=== PATIENT | female | born 1935 | race Native Hawaiian/Other Pacific Islander ===

== ENCOUNTER 2016-09-24 14:40 | Outpatient (CLI) | payer MEDICARE, OTHER | END 2016-09-24 14:41 | disposition home or self-care (01) | DX: I10 Essential (primary) hypertension (principal); D64.9 Anemia, unspecified; E11.9 Type 2 diabetes mellitus without complications; D50.9 Iron deficiency anemia, unspecified ==

== ENCOUNTER 2016-12-15 19:00 | Outpatient (CLI) | payer MEDICARE, OTHER ==
[2016-12-15 20:15] LABS: BASOPHILS # (AUTO) 0.1 10^3/uL (0.0-0.1); EOSINOPHILS # (AUTO) 0.5 10^3/uL (0.0-0.7); EOSINOPHILS % (AUTO) 5.9 %; HCT - HEMATOCRIT 31.5 % (37.0-47.0); HGB - HEMOGLOBIN 9.7 g/dL (12.0-16.0); LYMPHOCYTES # (AUTO) 1.6 10^3/uL (1.5-3.5); LYMPHOCYTES % (AUTO) 18.1 %; MEAN CORPUSCULAR HGB CONC 30.8 g/dL (32.0-36.0); MEAN CORPUSCULAR VOLUME 71.5 fL (81.0-99.0); MEAN PLATELET VOLUME 8.6 fL (7.9-10.8); MONOCYTES # (AUTO) 0.8 10^3/uL (0.0-1.0); MONOCYTES % (AUTO) 8.8 %; NEUTROPHILS # (AUTO) 5.9 10^3/uL (1.5-6.6); NEUTROPHILS % (AUTO) 66.2 %; RED BLOOD COUNT 4.41 10^6/uL (4.20-5.40); RED CELL DISTRIBUTION WIDTH 14.4 % (12.0-15.0); UNCORRECTED WHITE BLOOD COUNT 8.9 x10^3/uL; WHITE BLOOD COUNT 8.9 x10^3/uL (4.8-10.8)
[2016-12-15 20:44] LABS: ALBUMIN/GLOBULIN RATIO 0.7 (1.0-2.2); BILIRUBIN,TOTAL 0.2 mg/dL (0.2-1.0); CALCIUM 9.2 mg/dL (8.5-10.3); CREATININE 0.7 mg/dL (0.4-1.0); POTASSIUM 4.2 mmol/L (3.5-5.0); TOTAL PROTEIN 7.7 g/dL (6.7-8.2)
== END 2016-12-15 19:01 | disposition home or self-care (01) ==
LOC: LAB.R 19:00
DX: I10 Essential (primary) hypertension (principal)
CPT/HCPCS: 80053; 84443; 85025

== ENCOUNTER 2017-01-03 15:15 | Outpatient (CLI) | payer MEDICARE, OTHER ==
[2017-01-03 21:24] LABS: CALCIUM 9.3 mg/dL (8.5-10.3); CREATININE 0.7 mg/dL (0.4-1.0); POTASSIUM 4.3 mmol/L (3.5-5.0)
[2017-01-03 21:34] LABS: HEMOGLOBIN A1C 0.56 g/dL
== END 2017-01-03 15:16 | disposition home or self-care (01) ==
LOC: LAB.R 15:15
PROVIDERS: ATTEND Family Medicine
DX: I10 Essential (primary) hypertension (principal)
CPT/HCPCS: 80048; 83036

== ENCOUNTER 2017-04-28 08:00 | Outpatient (CLI) | payer MEDICARE, OTHER ==
[2017-04-28 19:25] LABS: HEMOGLOBIN A1C 1.22 g/dL
== END 2017-04-28 08:01 | disposition home or self-care (01) ==
LOC: LAB.R 08:00
DX: E11.9 Type 2 diabetes mellitus without complications (principal)
CPT/HCPCS: 83036

== ENCOUNTER 2017-07-14 08:00 | Outpatient (CLI) | payer MEDICARE, OTHER ==
[2017-07-14 23:06] LABS: BASOPHILS % (AUTO) 0.7 %; EOSINOPHILS # (AUTO) 0.6 10^3/uL (0.0-0.7); EOSINOPHILS % (AUTO) 7.7 %; HGB - HEMOGLOBIN 8.7 g/dL (12.0-16.0); LYMPHOCYTES # (AUTO) 1.9 10^3/uL (1.5-3.5); LYMPHOCYTES % (AUTO) 25.3 %; MEAN CORPUSCULAR HGB CONC 30.1 g/dL (32.0-36.0); MEAN CORPUSCULAR VOLUME 69.9 fL (81.0-99.0); MEAN PLATELET VOLUME 8.5 fL (7.9-10.8); MONOCYTES # (AUTO) 0.7 10^3/uL (0.0-1.0); MONOCYTES % (AUTO) 8.7 %; NEUTROPHILS # (AUTO) 4.3 10^3/uL (1.5-6.6); NEUTROPHILS % (AUTO) 57.6 %; PLT - PLATELET COUNT 200 10^3/uL (130-450); RED BLOOD COUNT 4.13 10^6/uL (4.20-5.40); RED CELL DISTRIBUTION WIDTH 14.7 % (12.0-15.0); WHITE BLOOD COUNT 7.5 x10^3/uL (4.8-10.8)
[2017-07-14 23:15] LABS: ALBUMIN 2.9 g/dL (3.2-5.5); ALBUMIN/GLOBULIN RATIO 0.8 (1.0-2.2); BILIRUBIN,TOTAL 0.2 mg/dL (0.2-1.0); CALCIUM 8.3 mg/dL (8.5-10.3); CREATININE 0.9 mg/dL (0.4-1.0); TOTAL PROTEIN 6.7 g/dL (6.7-8.2)
[2017-07-14 23:46] LABS: PLATELET ESTIMATE, MANUAL NORMAL (130-450,000) (NORMAL)
[2017-07-15 01:17] LABS: HB2 TOTAL 9.2 g/dL; HEMOGLOBIN A1C 0.85 g/dL; HEMOGLOBIN A1C % 10.6 % (4.6-6.2)
== END 2017-07-14 08:01 ==
LOC: LAB.R 08:00
DX: E11.9 Type 2 diabetes mellitus without complications (principal); D50.9 Iron deficiency anemia, unspecified
CPT/HCPCS: 80053; 82728; 83036; 85025

== ENCOUNTER 2017-08-12 08:00 | Outpatient (CLI) | payer MEDICARE, OTHER ==
[2017-08-12 16:20] LABS: BASOPHILS # (AUTO) 0.1 10^3/uL (0.0-0.1); BASOPHILS % (AUTO) 0.8 %; EOSINOPHILS # (AUTO) 0.4 10^3/uL (0.0-0.7); EOSINOPHILS % (AUTO) 4.2 %; HGB - HEMOGLOBIN 9.5 g/dL (12.0-16.0); LYMPHOCYTES # (AUTO) 2.5 10^3/uL (1.5-3.5); MEAN CORPUSCULAR HEMOGLOBIN 20.8 pg (27.0-31.0); MEAN CORPUSCULAR HGB CONC 30.4 g/dL (32.0-36.0); MEAN CORPUSCULAR VOLUME 68.5 fL (81.0-99.0); MEAN PLATELET VOLUME 8.7 fL (7.9-10.8); MONOCYTES # (AUTO) 0.7 10^3/uL (0.0-1.0); MONOCYTES % (AUTO) 7.6 %; NEUTROPHILS # (AUTO) 5.3 10^3/uL (1.5-6.6); NEUTROPHILS % (AUTO) 59.4 %; PLT - PLATELET COUNT 202 10^3/uL (130-450); RED BLOOD COUNT 4.58 10^6/uL (4.20-5.40); RED CELL DISTRIBUTION WIDTH 14.8 % (12.0-15.0); WHITE BLOOD COUNT 8.9 x10^3/uL (4.8-10.8)
[2017-08-12 16:38] LABS: PLATELET ESTIMATE, MANUAL NORMAL (130-450,000) (NORMAL); PLATELET MORPHOLOGY NORMAL APPEARANCE (NORMAL)
== END 2017-08-12 08:01 | disposition home or self-care (01) ==
LOC: LAB.R 08:00
DX: R79.89 Other specified abnormal findings of blood chemistry (principal); R68.89 Other general symptoms and signs
CPT/HCPCS: 82728; 85025

== ENCOUNTER 2017-10-29 08:00 | Outpatient (CLI) | payer MEDICARE, OTHER ==
[2017-10-29 17:51] LABS: CALCIUM 8.9 mg/dL (8.5-10.3)
[2017-10-29 18:03] LABS: BASOPHILS # (AUTO) 0.1 10^3/uL (0.0-0.1); BASOPHILS % (AUTO) 0.8 %; EOSINOPHILS # (AUTO) 0.4 10^3/uL (0.0-0.7); EOSINOPHILS % (AUTO) 5.1 %; HGB - HEMOGLOBIN 8.8 g/dL (12.0-16.0); LYMPHOCYTES % (AUTO) 28.6 %; MEAN CORPUSCULAR HEMOGLOBIN 21.5 pg (27.0-31.0); MEAN CORPUSCULAR HGB CONC 30.6 g/dL (32.0-36.0); MEAN CORPUSCULAR VOLUME 70.2 fL (81.0-99.0); MEAN PLATELET VOLUME 8.6 fL (7.9-10.8); MONOCYTES # (AUTO) 0.5 10^3/uL (0.0-1.0); MONOCYTES % (AUTO) 6.8 %; NEUTROPHILS # (AUTO) 4.2 10^3/uL (1.5-6.6); NEUTROPHILS % (AUTO) 58.7 %; PLT - PLATELET COUNT 303 10^3/uL (130-450); WHITE BLOOD COUNT 7.1 x10^3/uL (4.8-10.8)
== END 2017-10-29 08:01 ==
LOC: LAB.R 08:00
DX: E11.65 Type 2 diabetes mellitus with hyperglycemia (principal); D64.9 Anemia, unspecified
CPT/HCPCS: 80048; 82728; 85025

== ENCOUNTER 2017-10-31 08:00 | Outpatient (CLI) | payer MEDICARE, OTHER | END 2017-10-31 08:01 | disposition home or self-care (01) | LOC: LAB.R 08:00 | PROVIDERS: ATTEND Family Medicine | DX: D64.9 Anemia, unspecified (principal); D50.9 Iron deficiency anemia, unspecified | CPT/HCPCS: 82728 ==

== ENCOUNTER 2017-11-08 15:15 | Outpatient (CLI) | payer MEDICARE, OTHER ==
[2017-11-08 17:42] LABS: BASOPHILS # (AUTO) 0.1 10^3/uL (0.0-0.1); BASOPHILS % (AUTO) 0.6 %; EOSINOPHILS # (AUTO) 0.4 10^3/uL (0.0-0.7); EOSINOPHILS % (AUTO) 4.3 %; HGB - HEMOGLOBIN 9.1 g/dL (12.0-16.0); LYMPHOCYTES # (AUTO) 1.9 10^3/uL (1.5-3.5); LYMPHOCYTES % (AUTO) 20.6 %; MEAN CORPUSCULAR HEMOGLOBIN 22.5 pg (27.0-31.0); MEAN CORPUSCULAR HGB CONC 31.6 g/dL (32.0-36.0); MEAN PLATELET VOLUME 8.8 fL (7.9-10.8); MONOCYTES # (AUTO) 0.5 10^3/uL (0.0-1.0); MONOCYTES % (AUTO) 5.8 %; NEUTROPHILS # (AUTO) 6.3 10^3/uL (1.5-6.6); NEUTROPHILS % (AUTO) 68.7 %; PLT - PLATELET COUNT 224 10^3/uL (130-450); RED BLOOD COUNT 4.06 10^6/uL (4.20-5.40); RED CELL DISTRIBUTION WIDTH 15.6 % (12.0-15.0); WHITE BLOOD COUNT 9.2 x10^3/uL (4.8-10.8)
[2017-11-08 17:46] LABS: CREATININE 0.9 mg/dL (0.4-1.0)
== END 2017-11-08 15:16 ==
LOC: LAB.R 15:15
DX: E11.9 Type 2 diabetes mellitus without complications (principal)
CPT/HCPCS: 80048; 85025

== ENCOUNTER 2018-01-09 01:33 | Outpatient (CLI) | payer MEDICARE, OTHER | END 2018-01-09 01:34 | disposition critical access hospital (66) | LOC: EMS 01:33 | PROVIDERS: ATTEND Surgery | DX: K92.0 Hematemesis (principal) ==

== ENCOUNTER 2018-01-09 01:39 | Emergency (ER) | payer MEDICARE, OTHER ==
[2018-01-09] MEDS ORDERED: ONDANSETRON 4 MG/2 ML VIAL IVP STA (01:46)
[2018-01-09] MEDS ORDERED: PANTOPRAZOLE 40 MG VIAL IVP STA (01:46)
[2018-01-09] MEDS ORDERED: SODIUM CHLORIDE 0.9% 1,000 ML IV ONE (01:46)
[2018-01-09 02:08] LABS: BASOPHILS # (AUTO) 0.1 10^3/uL (0.0-0.1); EOSINOPHILS # (AUTO) 0.3 10^3/uL (0.0-0.7); EOSINOPHILS % (AUTO) 4.1 %; HGB - HEMOGLOBIN 9.2 g/dL (12.0-16.0); LYMPHOCYTES # (AUTO) 1.6 10^3/uL (1.5-3.5); LYMPHOCYTES % (AUTO) 20.4 %; MEAN CORPUSCULAR HEMOGLOBIN 23.7 pg (27.0-31.0); MEAN CORPUSCULAR HGB CONC 32.1 g/dL (32.0-36.0); MEAN CORPUSCULAR VOLUME 73.7 fL (81.0-99.0); MEAN PLATELET VOLUME 8.3 fL (7.9-10.8); MONOCYTES # (AUTO) 0.6 10^3/uL (0.0-1.0); MONOCYTES % (AUTO) 7.5 %; NEUTROPHILS # (AUTO) 5.2 10^3/uL (1.5-6.6); PLT - PLATELET COUNT 210 10^3/uL (130-450); RED BLOOD COUNT 3.88 10^6/uL (4.20-5.40); RED CELL DISTRIBUTION WIDTH 15.7 % (12.0-15.0); WHITE BLOOD COUNT 7.7 x10^3/uL (4.8-10.8)
[2018-01-09 02:12] LABS: PT - PROTHROMBIN TIME 11.2 secs (9.9-12.6)
[2018-01-09 02:19] LABS: ALBUMIN 3.1 g/dL (3.2-5.5); ALBUMIN/GLOBULIN RATIO 0.8 (1.0-2.2); BILIRUBIN,TOTAL 0.4 mg/dL (0.2-1.0); CALCIUM 9.1 mg/dL (8.5-10.3); CREATININE 0.9 mg/dL (0.4-1.0); TOTAL PROTEIN 7.2 g/dL (6.7-8.2)
--- NOTE | 2018-01-09 03:46 | ED Physician Documentation ---
PD HPI GI BLEED - Stated complaint Stated Complaint: VOMITED BLOOD - Chief complaint Chief Complaint: Abd Pain - History obtained from History obtained from: Patient, Family, EMS - History of Present Illness Timing - onset: Today Timing - details: Abrupt onset, Now resolved Associated symptoms: Vomiting, Hematemesis Similar symptoms before: No diagnosis Recently seen: Not recently seen - Additional information Additional information: Patient is an 82 year old female with a history of dementia and diabetes who was [facility] by the [facility] for and episode of hematemesis. According to ems patient vomited one time today. it looked dark so the staff used a stool guaic test and it was positive so they sent the patient in for evaluation. Patient has severe dementia and is a poor historian. Review of Systems Unable to obtain: Dementia PD PAST MEDICAL HISTORY - Past Medical History Past Medical History: Yes Cardiovascular: Hypertension Endocrine/Autoimmune: Type 2 diabetes GI: GERD Psych: Anxiety Musculoskeletal: Osteoarthritis, Osteoporosis, Osteopenia, Fatigue, Scoliosis, Chronic back pain - Past Surgical History Past Surgical History: No - Present Medications Home Medications: Ambulatory Orders Medication Instructions Recorded Confirmed Aspirin [Adult Low Dose Aspirin EC] 81 mg PO DAILY 11/24/15 Losartan [Cozaar] 50 mg PO DAILY 11/24/15 01/09/18 Metformin HCl 1,000 mg PO BID 11/24/15 01/09/18 Simvastatin 10 mg PO QPM 11/24/15 01/09/18 Cyanocobalamin (Vitamin B-12) 1 tab PO DAILY 01/09/18 01/09/18 [Vitamin B-12] Folic Acid 1 tab PO DAILY 01/09/18 01/09/18 Gabapentin 1 cap PO QPM 01/09/18 01/09/18 Insulin Aspart [NovoLOG] SQ QID 01/09/18 Multivitamin [Multivitamins] 1 each PO DAILY 01/09/18 01/09/18 Ondansetron Odt [Zofran] 4 mg TL Q6H PRN #10 tablet 01/09/18 - Allergies Allergies/Adverse Reactions: Allergies Allergy/AdvReac Type Severity Reaction Status Date / Time lisinopril Allergy Unknown Verified 01/09/18 01:48 Penicillins Allergy Unknown Verified 01/09/18 01:48 - Social History Does the pt smoke?: No Smoking Status: Never smoker Does the pt drink ETOH?: No Does the pt have substance abuse?: No - Immunizations Immunizations are current?: Yes - POLST Patient has POLST: Yes PD ED PE NORMAL - Vitals Vital signs reviewed: Yes - General General: No acute distress, Well developed/nourished - HEENT HEENT: Atraumatic, Moist mucous membranes, Other (no blood in the mouth or nares ) - Cardiac Cardiac: RRR - Respiratory Respiratory: No respiratory distress - Abdomen Abdomen: Soft, Non tender, Non distended - Derm Derm: Normal color, Warm and dry - Extremities Extremities: No deformity - Neuro Eye Opening: Spontaneous Results - Vitals Vitals: Vital Signs - 24 hr 01/09/18 01/09/18 01/09/18 01:40 02:20 03:55 Temperature 37.0 C Heart Rate 100 103 H 96 Respiratory 18 16 16 Rate Blood Pressure 132/62 H 129/66 127/76 O2 Saturation 100 94 94 Oxygen O2 Source Room air - Labs Labs: Laboratory Tests 01/09/18 01/09/18 01/09/18 01:55 01:55 01:55 WBC 7.7 RBC 3.88 L Hgb 9.2 L Hct 28.6 L MCV 73.7 L MCH 23.7 L MCHC 32.1 RDW 15.7 H Plt Count 210 MPV 8.3 Neut # (Auto) 5.2 Lymph # (Auto) 1.6 [place] # (Auto) 0.6 Eos # (Auto) 0.3 Baso # (Auto) 0.1 Absolute Nucleated RBC 0.00 Nucleated RBC % 0.1 PT 11.2 INR 1.0 APTT 29.9 Sodium 139 Potassium 4.8 Chloride 101 Carbon Dioxide 28 Anion Gap 10.0 BUN 24 H Creatinine 0.9 Estimated GFR (MDRD) 60 L Glucose 105 H Calcium 9.1 Total Bilirubin 0.4 AST 19 ALT 10 Alkaline Phosphatase 62 Total Protein 7.2 Albumin 3.1 L Globulin 4.1 Albumin/Globulin Ratio 0.8 L Lipase 83 H PD MEDICAL DECISION MAKING - ED course Complexity details: reviewed old records, reviewed results, re-evaluated patient , considered differential, d/w patient, d/w family ED course: Patient was seen and examined at bedside. patient was in no acute distress. Iv access was gained and labs were drawn. Patient was treated with zofran, protonix and ns bolus. Patient's lab work was not different from her baseline. Patient had no episodes of emesis while in the emergency department. The hematemesis could not be confirmed. Patient's son and the staff at the [facility] were made aware of the plan, and they felt comfortable with it. Patient required no further work up and was stable for discharge with outpatient follow up. - Sepsis Event Vital Signs: Vital Signs - 24 hr 01/09/18 01/09/18 01/09/18 01:40 02:20 03:55 Temperature 37.0 C Heart Rate 100 103 H 96 Respiratory 18 16 16 Rate Blood Pressure 132/62 H 129/66 127/76 O2 Saturation 100 94 94 Oxygen O2 Source Room air Departure - Departure Disposition: 01 Home, Self Care Clinical Impression: GI bleed Condition: Good Instructions: ED Bleed UGI Stable Follow-Up: Josh Resendiz MD [Provider Admit Priv/Credential] - Within 3 Days Prescriptions: Ondansetron Odt [Zofran] 4 mg TL Q6H PRN #10 tablet PRN Reason: Nausea / Vomiting Comments: Your levels today were within normal limits. You are being prescribed a nausea medication. You should avoid aspirin and all nsaids (ibuprofen, naproxen etc). You will need an upper endoscopy to see what exactly is going on. You should call Dr. Resendiz to schedule a follow up appointment. You should come back to the emergency department if you have another episode. Discharge Date/Time: 01/09/18 03:55
[2018-01-09] MEDS ORDERED: ONDANSETRON ODT 4 MG Prepack 2 TL STA (03:47)
[2018-01-09 04:10] VITALS: BP 127/76
== END 2018-01-09 03:55 | disposition home or self-care (01) ==
LOC: EDUNIT# → ED 01:39 → SUPCPDRO 01:39 → ED 03:55
DX: K92.2 Gastrointestinal hemorrhage, unspecified (principal); F03.90 Unspecified dementia, unspecified severity, without behavioral disturbance, psychotic disturbance, mood disturbance, and anxiety; I10 Essential (primary) hypertension; E11.9 Type 2 diabetes mellitus without complications; Z79.82 Long term (current) use of aspirin
CPT/HCPCS: 36415; 80053; 83690; 85025; 85610; 85730; 96374; 99283; 99284

== ENCOUNTER 2018-01-09 03:57 | Outpatient (CLI) | payer MEDICARE, OTHER | END 2018-01-09 03:58 | disposition home or self-care (01) | LOC: EMS 03:57 | PROVIDERS: ATTEND Surgery | DX: K92.0 Hematemesis (principal); R41.0 Disorientation, unspecified | CPT/HCPCS: A0425; A0428; A0429 ==

== ENCOUNTER → 2018-04-01 | Outpatient (CLI) | payer MEDICARE, OTHER ==
[2018-04-02 00:19] LABS: ALBUMIN 3.1 g/dL (3.2-5.5); ALBUMIN/GLOBULIN RATIO 0.8 (1.0-2.2); BILIRUBIN,TOTAL 0.4 mg/dL (0.2-1.0); CALCIUM 8.9 mg/dL (8.5-10.3); CREATININE 0.7 mg/dL (0.4-1.0); TOTAL PROTEIN 6.9 g/dL (6.7-8.2)
== END ==
LOC: LAB.R 22:40
DX: D64.9 Anemia, unspecified (principal); E11.9 Type 2 diabetes mellitus without complications; I10 Essential (primary) hypertension; E43 Unspecified severe protein-calorie malnutrition
CPT/HCPCS: 80053; 84443

== ENCOUNTER 2018-06-09 08:00 | Outpatient (CLI) | payer MEDICARE, OTHER ==
[2018-06-09 17:57] LABS: ALBUMIN 3.4 g/dL (3.2-5.5); ALBUMIN/GLOBULIN RATIO 0.9 (1.0-2.2); BILIRUBIN,TOTAL 0.2 mg/dL (0.2-1.0); CALCIUM 9.1 mg/dL (8.5-10.3); CREATININE 0.8 mg/dL (0.4-1.0)
[2018-06-09 18:00] LABS: BASOPHILS # (AUTO) 0.1 10^3/uL (0.0-0.1); BASOPHILS % (AUTO) 0.9 %; EOSINOPHILS # (AUTO) 0.3 10^3/uL (0.0-0.7); EOSINOPHILS % (AUTO) 4.8 %; HGB - HEMOGLOBIN 9.2 g/dL (12.0-16.0); LYMPHOCYTES # (AUTO) 1.8 10^3/uL (1.5-3.5); LYMPHOCYTES % (AUTO) 31.6 %; MEAN CORPUSCULAR HEMOGLOBIN 22.8 pg (27.0-31.0); MEAN CORPUSCULAR HGB CONC 30.8 g/dL (32.0-36.0); MEAN CORPUSCULAR VOLUME 74.1 fL (81.0-99.0); MEAN PLATELET VOLUME 8.6 fL (7.9-10.8); MONOCYTES # (AUTO) 0.3 10^3/uL (0.0-1.0); MONOCYTES % (AUTO) 5.9 %; NEUTROPHILS # (AUTO) 3.2 10^3/uL (1.5-6.6); NEUTROPHILS % (AUTO) 56.8 %; PLT - PLATELET COUNT 182 10^3/uL (130-450); RED BLOOD COUNT 4.04 10^6/uL (4.20-5.40); RED CELL DISTRIBUTION WIDTH 14.8 % (12.0-15.0); WHITE BLOOD COUNT 5.7 x10^3/uL (4.8-10.8)
== END 2018-06-09 23:59 | disposition home or self-care (01) ==
LOC: LAB.R 08:00
DX: E11.9 Type 2 diabetes mellitus without complications (principal); D64.9 Anemia, unspecified
CPT/HCPCS: 80053; 85025

== ENCOUNTER 2018-08-07 08:00 | Outpatient (CLI) | payer MEDICARE, OTHER ==
[2018-08-07 02:50] LABS: BASOPHILS % (AUTO) 0.8 %; EOSINOPHILS # (AUTO) 0.3 10^3/uL (0.0-0.7); EOSINOPHILS % (AUTO) 4.5 %; HGB - HEMOGLOBIN 8.5 g/dL (12.0-16.0); LYMPHOCYTES # (AUTO) 1.8 10^3/uL (1.5-3.5); LYMPHOCYTES % (AUTO) 30.4 %; MEAN CORPUSCULAR HEMOGLOBIN 23.2 pg (27.0-31.0); MEAN CORPUSCULAR HGB CONC 31.6 g/dL (32.0-36.0); MEAN CORPUSCULAR VOLUME 73.5 fL (81.0-99.0); MEAN PLATELET VOLUME 9.6 fL (7.9-10.8); MONOCYTES # (AUTO) 0.6 10^3/uL (0.0-1.0); MONOCYTES % (AUTO) 10.3 %; NEUTROPHILS # (AUTO) 3.3 10^3/uL (1.5-6.6); PLT - PLATELET COUNT 163 10^3/uL (130-450); RED BLOOD COUNT 3.64 10^6/uL (4.20-5.40); RED CELL DISTRIBUTION WIDTH 14.9 % (12.0-15.0); WHITE BLOOD COUNT 6.1 x10^3/uL (4.8-10.8)
[2018-08-07 03:11] LABS: HB2 TOTAL 8.7 g/dL; HEMOGLOBIN A1C 0.5 g/dL; HEMOGLOBIN A1C % 7.4 % (4.6-6.2)
[2018-08-07 14:07] LABS: CALCIUM 8.6 mg/dL (8.5-10.3); CREATININE 0.8 mg/dL (0.4-1.0)
== END 2018-08-07 23:59 | disposition home or self-care (01) ==
LOC: LAB.R 08:00
PROVIDERS: ATTEND Family Medicine
DX: D69.9 Hemorrhagic condition, unspecified (principal); E11.9 Type 2 diabetes mellitus without complications
CPT/HCPCS: 80048; 83036; 84443; 85025

== ENCOUNTER 2018-09-25 08:00 | Outpatient (CLI) | payer MEDICARE, OTHER ==
[2018-09-25 17:37] LABS: BILIRUBIN,URINE NEGATIVE (NEGATIVE); GLUCOSE, URINE (UA) NEGATIVE (NEGATIVE); KETONES,URINE (UA) NEGATIVE (NEGATIVE); LEUKOCYTE ESTERASE, URINE LARGE (NEGATIVE); NITRITE,URINE NEGATIVE (NEGATIVE); OCCULT BLOOD,URINE LARGE (NEGATIVE); PROTEIN,URINE 100 mg/dL (NEGATIVE); UROBILINOGEN,URINE 0.2 (NORMAL) E.U./dL (NORMAL)
[2018-09-25 17:40] LABS: CLARITY,URINE TURBID (CLEAR)
[2018-09-25 17:46] LABS: BACTERIA,URINE Many /HPF (None Seen); RBC,URINE 0-5 /HPF (0-5); SQUAMOUS EPITHELIAL CELL,UR NONE SEEN (<= Few); WBC CLUMPS,URINE PRESENT
== END 2018-09-25 23:59 | disposition home or self-care (01) ==
LOC: LAB.R 08:00
PROVIDERS: ATTEND Family Medicine
DX: N39.0 Urinary tract infection, site not specified (principal)
CPT/HCPCS: 81001; 87086

== ENCOUNTER 2019-01-02 09:55 | Outpatient (CLI) | payer MEDICARE, OTHER ==
[2019-01-02 22:33] LABS: CALCIUM 8.7 mg/dL (8.5-10.3); CREATININE 1.1 mg/dL (0.4-1.0)
== END 2019-01-02 23:59 | disposition home or self-care (01) ==
LOC: LAB.R 09:55
PROVIDERS: ATTEND Internal Medicine
DX: E78.00 Pure hypercholesterolemia, unspecified (principal)
CPT/HCPCS: 80048

== ENCOUNTER 2019-06-02 08:00 | Outpatient (CLI) | payer MEDICARE, OTHER ==
[2019-06-02 15:58] LABS: BASOPHILS % (AUTO) 0.5 %; EOSINOPHILS # (AUTO) 0.3 10^3/uL (0.0-0.7); HGB - HEMOGLOBIN 10.1 g/dL (12.0-16.0); LYMPHOCYTES # (AUTO) 2.6 10^3/uL (1.5-3.5); LYMPHOCYTES % (AUTO) 30.1 %; MEAN CORPUSCULAR HEMOGLOBIN 22.3 pg (27.0-31.0); MEAN CORPUSCULAR HGB CONC 30.7 g/dL (32.0-36.0); MEAN CORPUSCULAR VOLUME 72.6 fL (81.0-99.0); MONOCYTES # (AUTO) 0.7 10^3/uL (0.0-1.0); MONOCYTES % (AUTO) 8.3 %; NEUTROPHILS % (AUTO) 57.8 %; PLT - PLATELET COUNT 193 10^3/uL (130-450); RED BLOOD COUNT 4.53 10^6/uL (4.20-5.40); RED CELL DISTRIBUTION WIDTH 15.5 % (12.0-15.0); WHITE BLOOD COUNT 8.7 x10^3/uL (4.8-10.8)
[2019-06-02 16:06] LABS: ALBUMIN 3.6 g/dL (3.2-5.5); ALBUMIN/GLOBULIN RATIO 0.9 (1.0-2.2); BILIRUBIN,TOTAL 0.4 mg/dL (0.2-1.0); CALCIUM 8.5 mg/dL (8.5-10.3); CREATININE 1.4 mg/dL (0.4-1.0); PHOSPHORUS 3.8 mg/dL (2.5-4.6); TOTAL PROTEIN 7.5 g/dL (6.7-8.2)
== END 2019-06-02 23:59 | disposition home or self-care (01) ==
LOC: LAB.R 08:00
PROVIDERS: ATTEND Family Medicine
DX: A41.9 Sepsis, unspecified organism (principal); D64.9 Anemia, unspecified; L29.9 Pruritus, unspecified; D50.9 Iron deficiency anemia, unspecified
CPT/HCPCS: 80053; 84100; 85025

== ENCOUNTER 2019-09-24 10:00 | Outpatient (CLI) | payer MEDICARE, OTHER ==
[2019-09-24 11:00] LABS: BASOPHILS # (AUTO) 0.1 10^3/uL (0.0-0.1); BASOPHILS % (AUTO) 0.3 %; EOSINOPHILS % (AUTO) 0.2 %; HGB - HEMOGLOBIN 9.4 g/dL (12.0-16.0); LYMPHOCYTES # (AUTO) 1.4 10^3/uL (1.5-3.5); LYMPHOCYTES % (AUTO) 7.8 %; MEAN CORPUSCULAR HEMOGLOBIN 21.8 pg (27.0-31.0); MEAN CORPUSCULAR HGB CONC 32.6 g/dL (32.0-36.0); MEAN CORPUSCULAR VOLUME 66.7 fL (81.0-99.0); MEAN PLATELET VOLUME 11.9 fL (7.9-10.8); MONOCYTES % (AUTO) 5.5 %; NEUTROPHILS # (AUTO) 15.5 10^3/uL (1.5-6.6); NEUTROPHILS % (AUTO) 84.8 %; PLT - PLATELET COUNT 314 10^3/uL (130-450); RED BLOOD COUNT 4.32 10^6/uL (4.20-5.40); RED CELL DISTRIBUTION WIDTH 14.7 % (12.0-15.0); WHITE BLOOD COUNT 18.3 x10^3/uL (4.8-10.8)
[2019-09-24 11:20] LABS: ALBUMIN 2.1 g/dL (3.2-5.5); ALBUMIN/GLOBULIN RATIO 0.5 (1.0-2.2); BILIRUBIN,TOTAL 1.4 mg/dL (0.2-1.0); CALCIUM 7.5 mg/dL (8.5-10.3); CREATININE 1.3 mg/dL (0.4-1.0); TOTAL PROTEIN 6.1 g/dL (6.7-8.2)
[2019-09-24 11:21] LABS: HB2 TOTAL 9.8 g/dL; HEMOGLOBIN A1C 0.62 g/dL; HEMOGLOBIN A1C % 7.9 % (4.6-6.2)
[2019-09-24 11:57] LABS: PLATELET ESTIMATE, MANUAL NORMAL (130-450,000) (NORMAL); PLATELET MORPHOLOGY RARE GIANT PLATELETS (NORMAL)
[2019-09-24 11:58] LABS: DIFFERENTIAL COMMENT Y
== END 2019-09-24 23:59 | disposition home or self-care (01) ==
LOC: LAB.R 10:00
DX: I10 Essential (primary) hypertension (principal); E11.9 Type 2 diabetes mellitus without complications; U07.1 COVID-19
CPT/HCPCS: 80053; 82728; 83036; 85025

== ENCOUNTER 2019-09-27 14:00 | Outpatient (CLI) | payer MEDICARE, OTHER ==
[2019-09-27 14:26] LABS: BASOPHILS % (AUTO) 0.3 %; EOSINOPHILS # (AUTO) 0.2 10^3/uL (0.0-0.7); EOSINOPHILS % (AUTO) 1.4 %; HGB - HEMOGLOBIN 8.5 g/dL (12.0-16.0); LYMPHOCYTES # (AUTO) 1.5 10^3/uL (1.5-3.5); LYMPHOCYTES % (AUTO) 12.3 %; MEAN CORPUSCULAR HEMOGLOBIN 21.2 pg (27.0-31.0); MEAN CORPUSCULAR HGB CONC 31.5 g/dL (32.0-36.0); MEAN CORPUSCULAR VOLUME 67.3 fL (81.0-99.0); MONOCYTES # (AUTO) 0.8 10^3/uL (0.0-1.0); MONOCYTES % (AUTO) 6.4 %; NEUTROPHILS # (AUTO) 9.7 10^3/uL (1.5-6.6); NEUTROPHILS % (AUTO) 78.3 %; PLT - PLATELET COUNT 399 10^3/uL (130-450); RED BLOOD COUNT 4.01 10^6/uL (4.20-5.40); RED CELL DISTRIBUTION WIDTH 15.1 % (12.0-15.0); WHITE BLOOD COUNT 12.5 x10^3/uL (4.8-10.8)
[2019-09-27 14:36] LABS: CREATININE 1.2 mg/dL (0.4-1.0)
[2019-09-27 14:42] LABS: PLATELET ESTIMATE, MANUAL NORMAL (130-450,000) (NORMAL); PLATELET MORPHOLOGY NORMAL APPEARANCE (NORMAL)
== END 2019-09-27 23:59 | disposition home or self-care (01) ==
LOC: LAB.R 14:00
PROVIDERS: ATTEND Family Medicine
DX: E87.1 Hypo-osmolality and hyponatremia (principal); L03.90 Cellulitis, unspecified; E63.9 Nutritional deficiency, unspecified
CPT/HCPCS: 80048; 85025

== ENCOUNTER 2020-01-16 07:10 | Outpatient (CLI) | payer MEDICARE, OTHER | END 2020-01-16 23:59 | disposition home or self-care (01) | LOC: LAB.R 07:10 | DX: A09 Infectious gastroenteritis and colitis, unspecified (principal) | CPT/HCPCS: 87493; 87798 ==

== ENCOUNTER 2020-05-01 07:00 | Outpatient (CLI) | payer MEDICARE, OTHER ==
[2020-05-01 14:38] LABS: BASOPHILS # (AUTO) 0.1 10^3/uL (0.0-0.1); BASOPHILS % (AUTO) 0.7 %; EOSINOPHILS # (AUTO) 0.6 10^3/uL (0.0-0.7); EOSINOPHILS % (AUTO) 7.9 %; HGB - HEMOGLOBIN 8.7 g/dL (12.0-16.0); LYMPHOCYTES # (AUTO) 1.7 10^3/uL (1.5-3.5); LYMPHOCYTES % (AUTO) 23.3 %; MEAN CORPUSCULAR HEMOGLOBIN 22.8 pg (27.0-31.0); MEAN CORPUSCULAR VOLUME 76.1 fL (81.0-99.0); MEAN PLATELET VOLUME 11.2 fL (7.9-10.8); MONOCYTES # (AUTO) 0.8 10^3/uL (0.0-1.0); MONOCYTES % (AUTO) 10.5 %; NEUTROPHILS # (AUTO) 4.1 10^3/uL (1.5-6.6); NEUTROPHILS % (AUTO) 57.3 %; PLT - PLATELET COUNT 236 10^3/uL (130-450); RED BLOOD COUNT 3.81 10^6/uL (4.20-5.40); WHITE BLOOD COUNT 7.2 x10^3/uL (4.8-10.8)
[2020-05-01 14:43] LABS: ALBUMIN/GLOBULIN RATIO 0.8 (1.0-2.2); BILIRUBIN,TOTAL 0.4 mg/dL (0.2-1.0); CALCIUM 8.4 mg/dL (8.5-10.3); CREATININE 1.5 mg/dL (0.4-1.0); TOTAL PROTEIN 6.7 g/dL (6.7-8.2)
[2020-05-01 20:16] LABS: HEMOGLOBIN A1c% 7.3 % (4.27-6.07)
== END 2020-05-01 23:59 | disposition home or self-care (01) ==
LOC: LAB.R 07:00
DX: E63.9 Nutritional deficiency, unspecified (principal); E11.42 Type 2 diabetes mellitus with diabetic polyneuropathy; D50.9 Iron deficiency anemia, unspecified
CPT/HCPCS: 80053; 83036; 85025

== ENCOUNTER 2020-07-03 13:15 | Outpatient (CLI) | payer MEDICARE, OTHER ==
[2020-07-03 13:51] LABS: ALBUMIN 3.3 g/dL (3.2-5.5); ALBUMIN/GLOBULIN RATIO 0.8 (1.0-2.2); BILIRUBIN,TOTAL 0.4 mg/dL (0.2-1.0); CALCIUM 8.7 mg/dL (8.5-10.3); CREATININE 1.4 mg/dL (0.4-1.0); TOTAL PROTEIN 7.2 g/dL (6.7-8.2)
== END 2020-07-03 23:59 | disposition home or self-care (01) ==
LOC: LAB.R 13:15
DX: E11.42 Type 2 diabetes mellitus with diabetic polyneuropathy (principal)
CPT/HCPCS: 80053; 85025

== ENCOUNTER 2020-07-04 10:45 | Outpatient (CLI) | payer MEDICARE, OTHER ==
[2020-07-04 14:51] LABS: BASOPHILS # (AUTO) 0.1 10^3/uL (0.0-0.1); EOSINOPHILS # (AUTO) 0.8 10^3/uL (0.0-0.7); EOSINOPHILS % (AUTO) 9.4 %; HGB - HEMOGLOBIN 9.7 g/dL (12.0-16.0); LYMPHOCYTES # (AUTO) 1.7 10^3/uL (1.5-3.5); LYMPHOCYTES % (AUTO) 20.8 %; MEAN CORPUSCULAR HEMOGLOBIN 22.2 pg (27.0-31.0); MEAN CORPUSCULAR HGB CONC 29.8 g/dL (32.0-36.0); MEAN CORPUSCULAR VOLUME 74.5 fL (81.0-99.0); MONOCYTES # (AUTO) 0.8 10^3/uL (0.0-1.0); MONOCYTES % (AUTO) 9.1 %; NEUTROPHILS % (AUTO) 59.3 %; PLT - PLATELET COUNT 207 10^3/uL (130-450); RED BLOOD COUNT 4.36 10^6/uL (4.20-5.40); WHITE BLOOD COUNT 8.3 x10^3/uL (4.8-10.8)
== END 2020-07-04 23:59 | disposition home or self-care (01) ==
LOC: LAB.R 10:45
DX: D50.9 Iron deficiency anemia, unspecified (principal); R11.10 Vomiting, unspecified
CPT/HCPCS: 85025

== ENCOUNTER 2020-09-04 08:30 | Outpatient (CLI) | payer MEDICARE, OTHER ==
[2020-09-04 10:39] LABS: BASOPHILS # (AUTO) 0.1 10^3/uL (0.0-0.1); EOSINOPHILS # (AUTO) 0.7 10^3/uL (0.0-0.7); EOSINOPHILS % (AUTO) 10.1 %; HGB - HEMOGLOBIN 10.9 g/dL (12.0-16.0); LYMPHOCYTES # (AUTO) 1.8 10^3/uL (1.5-3.5); LYMPHOCYTES % (AUTO) 25.1 %; MEAN CORPUSCULAR HEMOGLOBIN 22.3 pg (27.0-31.0); MEAN CORPUSCULAR HGB CONC 31.1 g/dL (32.0-36.0); MEAN CORPUSCULAR VOLUME 71.6 fL (81.0-99.0); MONOCYTES # (AUTO) 0.6 10^3/uL (0.0-1.0); MONOCYTES % (AUTO) 8.1 %; NEUTROPHILS # (AUTO) 3.9 10^3/uL (1.5-6.6); NEUTROPHILS % (AUTO) 55.4 %; RED BLOOD COUNT 4.89 10^6/uL (4.20-5.40); RED CELL DISTRIBUTION WIDTH 17.2 % (12.0-15.0)
[2020-09-04 10:54] LABS: PLATELET MORPHOLOGY PLATELET CLUMPING (NORMAL)
[2020-09-04 10:55] LABS: PLATELET ESTIMATE, MANUAL NORMAL (130-450,000) (NORMAL)
[2020-09-04 11:02] LABS: ALBUMIN 3.5 g/dL (3.2-5.5); ALBUMIN/GLOBULIN RATIO 0.9 (1.0-2.2); ALKALINE PHOSPHATASE 80 IU/L (42-121); BUN - BLOOD UREA NITROGEN 33 mg/dL (6-20); CALCIUM 8.7 mg/dL (8.5-10.3); CARBON DIOXIDE - CO2 21 mmol/L (21-32); CHLORIDE 103 mmol/L (101-111); CHOL/HDL RATIO 3.3 (<4.4); CHOLESTEROL 214 mg/dL; CREATININE 1.2 mg/dL (0.4-1.0); GFR - MDRD 42 (>89); GLUCOSE 134 mg/dL (70-100); HDL CHOLESTEROL 64 mg/dL; LDL CHOLESTEROL,CALCULATED 129 mg/dL; SODIUM 134 mmol/L (135-145); TOTAL PROTEIN 7.5 g/dL (6.7-8.2); TRIGLYCERIDES 107 mg/dL; VLDL CHOLESTEROL 21 mg/dL
[2020-09-04 11:03] LABS: ALT ALANINE AMINOTRANSFERASE 20 IU/L (10-60); AST ASPARTATE AMINOTRANSFERASE 35 IU/L (10-42); BILIRUBIN,TOTAL 0.5 mg/dL (0.2-1.0); POTASSIUM 4.6 mmol/L (3.5-5.0)
== END 2020-09-04 23:59 | disposition home or self-care (01) ==
LOC: LAB.R 08:30
PROVIDERS: ATTEND Family Medicine
DX: E11.42 Type 2 diabetes mellitus with diabetic polyneuropathy (principal); E43 Unspecified severe protein-calorie malnutrition; D64.9 Anemia, unspecified
CPT/HCPCS: 80053; 80061; 83721; 85025

== ENCOUNTER 2020-09-26 13:28 | Outpatient (CLI) | payer MEDICARE, OTHER ==
[2020-09-26 14:05] LABS: ALBUMIN 3.1 g/dL (3.2-5.5); ALBUMIN/GLOBULIN RATIO 0.7 (1.0-2.2); BILIRUBIN,TOTAL 0.2 mg/dL (0.2-1.0); CREATININE 1.4 mg/dL (0.4-1.0); POTASSIUM 3.7 mmol/L (3.5-5.0); TOTAL PROTEIN 7.7 g/dL (6.7-8.2)
[2020-09-26 14:18] LABS: BASOPHILS # (AUTO) 0.1 10^3/uL (0.0-0.1); BASOPHILS % (AUTO) 0.7 %; EOSINOPHILS # (AUTO) 0.5 10^3/uL (0.0-0.7); EOSINOPHILS % (AUTO) 7.2 %; HCT - HEMATOCRIT 33.7 % (37.0-47.0); HGB - HEMOGLOBIN 10.1 g/dL (12.0-16.0); LYMPHOCYTES # (AUTO) 1.6 10^3/uL (1.5-3.5); LYMPHOCYTES % (AUTO) 22.8 %; MEAN CORPUSCULAR HEMOGLOBIN 21.6 pg (27.0-31.0); MEAN PLATELET VOLUME 10.7 fL (7.9-10.8); MONOCYTES # (AUTO) 0.6 10^3/uL (0.0-1.0); MONOCYTES % (AUTO) 8.9 %; NEUTROPHILS # (AUTO) 4.3 10^3/uL (1.5-6.6); NEUTROPHILS % (AUTO) 60.1 %; PLT - PLATELET COUNT 194 10^3/uL (130-450); RED BLOOD COUNT 4.68 10^6/uL (4.20-5.40); RED CELL DISTRIBUTION WIDTH 15.9 % (12.0-15.0); WHITE BLOOD COUNT 7.1 x10^3/uL (4.8-10.8)
[2020-09-26 19:38] LABS: ESTIMATED AVERAGE GLUCOSE 169 mg/dL (70-100); HEMOGLOBIN A1c% 7.5 % (4.27-6.07)
== END 2020-09-26 13:29 | disposition home or self-care (01) ==
LOC: LAB.R 13:28
PROVIDERS: ATTEND Family Medicine
DX: D64.9 Anemia, unspecified (principal); E78.00 Pure hypercholesterolemia, unspecified; E11.42 Type 2 diabetes mellitus with diabetic polyneuropathy
CPT/HCPCS: 80053; 83036; 85025

== ENCOUNTER 2021-01-03 08:00 | Outpatient (CLI) | payer MEDICARE, OTHER ==
[2021-01-03 21:34] LABS: BASOPHILS # (AUTO) 0.1 10^3/uL (0.0-0.1); BASOPHILS % (AUTO) 0.8 %; EOSINOPHILS # (AUTO) 0.6 10^3/uL (0.0-0.7); EOSINOPHILS % (AUTO) 8.9 %; HCT - HEMATOCRIT 31.2 % (37.0-47.0); HGB - HEMOGLOBIN 9.4 g/dL (12.0-16.0); LYMPHOCYTES # (AUTO) 1.6 10^3/uL (1.5-3.5); LYMPHOCYTES % (AUTO) 23.1 %; MEAN CORPUSCULAR HEMOGLOBIN 21.9 pg (27.0-31.0); MEAN CORPUSCULAR HGB CONC 30.1 g/dL (32.0-36.0); MEAN CORPUSCULAR VOLUME 72.7 fL (81.0-99.0); MONOCYTES # (AUTO) 0.7 10^3/uL (0.0-1.0); MONOCYTES % (AUTO) 9.2 %; NEUTROPHILS # (AUTO) 4.1 10^3/uL (1.5-6.6); NEUTROPHILS % (AUTO) 57.9 %; PLT - PLATELET COUNT 206 10^3/uL (130-450); RED BLOOD COUNT 4.29 10^6/uL (4.20-5.40); RED CELL DISTRIBUTION WIDTH 16.9 % (12.0-15.0); WHITE BLOOD COUNT 7.1 x10^3/uL (4.8-10.8)
[2021-01-03 21:39] LABS: CALCIUM 8.7 mg/dL (8.5-10.3); CREATININE 1.2 mg/dL (0.4-1.0); POTASSIUM 3.7 mmol/L (3.5-5.0)
[2021-01-03 21:48] LABS: ESTIMATED AVERAGE GLUCOSE 189 mg/dL (70-100); HEMOGLOBIN A1c% 8.2 % (4.27-6.07)
== END 2021-01-03 23:59 ==
LOC: LAB.R 08:00
PROVIDERS: ATTEND Family Medicine
DX: E11.9 Type 2 diabetes mellitus without complications (principal); D64.9 Anemia, unspecified; I10 Essential (primary) hypertension
CPT/HCPCS: 80048; 83036; 85025

== ENCOUNTER 2021-09-21 08:00 | Outpatient (CLI) | payer MEDICARE, OTHER ==
[2021-09-21 11:24] LABS: BASOPHILS # (AUTO) 0.1 10^3/uL (0.0-0.1); BASOPHILS % (AUTO) 0.9 %; EOSINOPHILS # (AUTO) 0.7 10^3/uL (0.0-0.7); EOSINOPHILS % (AUTO) 8.5 %; HCT - HEMATOCRIT 34.1 % (37.0-47.0); HGB - HEMOGLOBIN 10.4 g/dL (12.0-16.0); LYMPHOCYTES # (AUTO) 2.1 10^3/uL (1.5-3.5); LYMPHOCYTES % (AUTO) 26.5 %; MEAN CORPUSCULAR HEMOGLOBIN 21.4 pg (27.0-31.0); MEAN CORPUSCULAR HGB CONC 30.5 g/dL (32.0-36.0); MEAN CORPUSCULAR VOLUME 70.2 fL (81.0-99.0); MONOCYTES # (AUTO) 0.8 10^3/uL (0.0-1.0); MONOCYTES % (AUTO) 9.5 %; NEUTROPHILS # (AUTO) 4.3 10^3/uL (1.5-6.6); NEUTROPHILS % (AUTO) 54.3 %; PLT - PLATELET COUNT 221 10^3/uL (130-450); RED BLOOD COUNT 4.86 10^6/uL (4.20-5.40); RED CELL DISTRIBUTION WIDTH 15.2 % (12.0-15.0); WHITE BLOOD COUNT 7.9 x10^3/uL (4.8-10.8)
[2021-09-21 11:37] LABS: ALBUMIN 3.1 g/dL (3.2-5.5); ALBUMIN/GLOBULIN RATIO 0.7 (1.0-2.2); BILIRUBIN,TOTAL 0.5 mg/dL (0.2-1.0); CALCIUM 8.6 mg/dL (8.5-10.3); CREATININE 1.3 mg/dL (0.4-1.0); POTASSIUM 4.4 mmol/L (3.5-5.0); TOTAL PROTEIN 7.7 g/dL (6.7-8.2)
[2021-09-21 11:47] LABS: ESTIMATED AVERAGE GLUCOSE 206 mg/dL (70-100); HEMOGLOBIN A1c% 8.8 % (4.27-6.07)
[2021-09-21 11:56] LABS: SLIDE REVIEW? Indicated
== END 2021-09-21 08:01 | disposition home or self-care (01) ==
LOC: LAB.R 08:00
PROVIDERS: ATTEND Hospitalist
DX: I10 Essential (primary) hypertension (principal); Z78.9 Other specified health status; D50.9 Iron deficiency anemia, unspecified; E11.42 Type 2 diabetes mellitus with diabetic polyneuropathy
CPT/HCPCS: 80053; 83036; 85025

== ENCOUNTER 2022-05-19 10:26 | Outpatient (CLI) | payer MEDICARE, OTHER ==
[2022-05-19 11:25] LABS: B. PARAPERTUSSIS- RESP PCR PAN NOT DETECTED; B. PERTUSSIS- RESP PCR PANEL NOT DETECTED; C. PNEUMONIAE- RESP PCR PANEL NOT DETECTED; CORONAVIRUS 229E-RESP PCR NOT DETECTED; CORONAVIRUS HKU1-RESP PCR NOT DETECTED; CORONAVIRUS NL63-RESP PCR NOT DETECTED; CORONAVIRUS OC43-RESP PCR NOT DETECTED; HUMAN METAPNEUMOVIRUS NOT DETECTED; INFLUENZA A- RESP PCR PANEL NOT DETECTED; INFLUENZA B - RESP PCR PANEL NOT DETECTED; M. PNEUMONIAE- RESP PCR PANEL NOT DETECTED; PARAINFLUENZA VIRUS 1 NOT DETECTED; PARAINFLUENZA VIRUS 2 NOT DETECTED; PARAINFLUENZA VIRUS 3 NOT DETECTED; PARAINFLUENZA VIRUS 4 NOT DETECTED; RHINOVIRUS/ENTEROVIRUS NOT DETECTED; RSV- RESP PCR PANEL DETECTED; SARS-CoV-2 -RESP PCR PANEL NOT DETECTED
== END 2022-05-19 10:27 | disposition home or self-care (01) ==
LOC: LAB.R 10:26
PROVIDERS: ATTEND Internal Medicine
DX: Z13.83 Encounter for screening for respiratory disorder NEC (principal); Z20.822 Contact with and (suspected) exposure to COVID-19
CPT/HCPCS: 87633

== ENCOUNTER 2022-06-04 08:00 | Outpatient (CLI) | payer MEDICARE, OTHER ==
[2022-06-04 03:14] LABS: BILIRUBIN,URINE NEGATIVE (NEGATIVE); GLUCOSE, URINE (UA) NEGATIVE (NEGATIVE); KETONES,URINE (UA) TRACE mg/dL (NEGATIVE); LEUKOCYTE ESTERASE, URINE LARGE (NEGATIVE); NITRITE,URINE NEGATIVE (NEGATIVE); OCCULT BLOOD,URINE MODERATE (NEGATIVE); PH,URINE 5.5 PH (5.0-7.5); PROTEIN,URINE 30 mg/dL (NEGATIVE); UROBILINOGEN,URINE 0.2 (NORMAL) E.U./dL (NORMAL)
[2022-06-04 03:26] LABS: BACTERIA,URINE Many /HPF (None Seen); CLARITY,URINE CLOUDY (CLEAR); SQUAMOUS EPITHELIAL CELL,UR FEW Squamous (<= Few); WBC,URINE >25 /HPF (0-5)
== END 2022-06-04 23:59 | disposition home or self-care (01) ==
LOC: LAB.R 08:00
PROVIDERS: ATTEND Internal Medicine
DX: N93.9 Abnormal uterine and vaginal bleeding, unspecified (principal)
CPT/HCPCS: 81001; 87077; 87086; 87181

== ENCOUNTER 2022-07-31 14:27 | Outpatient (CLI) | payer MEDICARE, OTHER ==
[2022-07-31 14:36] LABS: BILIRUBIN,URINE NEGATIVE (NEGATIVE); GLUCOSE, URINE (UA) NEGATIVE (NEGATIVE); KETONES,URINE (UA) NEGATIVE (NEGATIVE); LEUKOCYTE ESTERASE, URINE MODERATE (NEGATIVE); NITRITE,URINE NEGATIVE (NEGATIVE); OCCULT BLOOD,URINE NEGATIVE (NEGATIVE); PH,URINE 5.5 PH (5.0-7.5); PROTEIN,URINE NEGATIVE (NEGATIVE); UROBILINOGEN,URINE 0.2 (NORMAL) E.U./dL (NORMAL)
[2022-07-31 14:48] LABS: BACTERIA,URINE Many /HPF (None Seen); CLARITY,URINE CLOUDY (CLEAR); RBC,URINE 0-5 /HPF (0-5); SQUAMOUS EPITHELIAL CELL,UR RARE Squamous (<= Few); WBC,URINE >25 /HPF (0-5)
[2022-07-31 15:06] LABS: CREATININE,URINE 37.8 mg/dL; PROTEIN/CREATININE RATIO,URINE 0.8 (<=0.2)
== END 2022-07-31 14:28 | disposition home or self-care (01) ==
LOC: LAB.R 14:27
DX: N39.0 Urinary tract infection, site not specified (principal); R80.9 Proteinuria, unspecified
CPT/HCPCS: 81001; 82570; 84156; 87077; 87086; 87181

== ENCOUNTER 2022-08-01 08:00 | Outpatient (CLI) | payer MEDICARE, OTHER ==
[2022-08-01 16:55] LABS: BASOPHILS # (AUTO) 0.1 10^3/uL (0.0-0.1); BASOPHILS % (AUTO) 0.8 %; EOSINOPHILS # (AUTO) 0.4 10^3/uL (0.0-0.7); EOSINOPHILS % (AUTO) 4.5 %; HCT - HEMATOCRIT 31.8 % (37.0-47.0); HGB - HEMOGLOBIN 9.4 g/dL (12.0-16.0); LYMPHOCYTES # (AUTO) 2.4 10^3/uL (1.5-3.5); LYMPHOCYTES % (AUTO) 29.1 %; MEAN CORPUSCULAR HEMOGLOBIN 21.2 pg (27.0-31.0); MEAN CORPUSCULAR HGB CONC 29.6 g/dL (32.0-36.0); MEAN CORPUSCULAR VOLUME 71.8 fL (81.0-99.0); MONOCYTES # (AUTO) 0.7 10^3/uL (0.0-1.0); MONOCYTES % (AUTO) 8.4 %; NEUTROPHILS # (AUTO) 4.7 10^3/uL (1.5-6.6); NEUTROPHILS % (AUTO) 57.1 %; PLT - PLATELET COUNT 225 10^3/uL (130-450); RED BLOOD COUNT 4.43 10^6/uL (4.20-5.40); RED CELL DISTRIBUTION WIDTH 17.2 % (12.0-15.0); WHITE BLOOD COUNT 8.3 x10^3/uL (4.8-10.8)
[2022-08-01 17:05] LABS: ALBUMIN 2.9 g/dL (3.2-5.5); ALBUMIN/GLOBULIN RATIO 0.7 (1.0-2.2); ALKALINE PHOSPHATASE 64 IU/L (42-121); ALT ALANINE AMINOTRANSFERASE 23 IU/L (10-60); AST ASPARTATE AMINOTRANSFERASE 23 IU/L (10-42); BILIRUBIN,TOTAL 0.2 mg/dL (0.2-1.0); BUN - BLOOD UREA NITROGEN 32 mg/dL (6-20); CALCIUM 8.5 mg/dL (8.5-10.3); CARBON DIOXIDE - CO2 22 mmol/L (21-32); CHLORIDE 104 mmol/L (101-111); CHOL/HDL RATIO 2.7 (<4.4); CHOLESTEROL 147 mg/dL; CREATININE 1.5 mg/dL (0.4-1.0); GFR - MDRD 33 (>89); GLUCOSE 203 mg/dL (70-100); HDL CHOLESTEROL 55 mg/dL; LDL CHOLESTEROL,CALCULATED 76 mg/dL; LDL/HDL RATIO 1.4 (<4.4); MAGNESIUM 2.1 mg/dL (1.7-2.8); PHOSPHORUS 3.6 mg/dL (2.5-4.6); POTASSIUM 4.5 mmol/L (3.5-5.0); SODIUM 135 mmol/L (135-145); TRIGLYCERIDES 79 mg/dL; VLDL CHOLESTEROL 16 mg/dL
== END 2022-08-01 23:59 | disposition home or self-care (01) ==
LOC: LAB 08:00
DX: I10 Essential (primary) hypertension (principal); E78.5 Hyperlipidemia, unspecified; D64.9 Anemia, unspecified; E83.39 Other disorders of phosphorus metabolism
CPT/HCPCS: 36415; 80053; 80061; 83721; 83735; 84100; 85025

== ENCOUNTER 2022-11-22 08:00 | Outpatient (CLI) | payer MEDICARE, OTHER ==
[2022-11-22 22:16] LABS: ESTIMATED AVERAGE GLUCOSE 183 mg/dL (70-100)
== END 2022-11-22 23:59 | disposition home or self-care (01) ==
LOC: LAB.R 08:00
PROVIDERS: ATTEND Registered Nurse
DX: E11.42 Type 2 diabetes mellitus with diabetic polyneuropathy (principal)
CPT/HCPCS: 83036

== ENCOUNTER 2023-04-02 12:33 | Outpatient (CLI) | payer MEDICARE, OTHER ==
[2023-04-02 12:50] LABS: BILIRUBIN,URINE NEGATIVE (NEGATIVE); GLUCOSE, URINE (UA) NEGATIVE (NEGATIVE); KETONES,URINE (UA) NEGATIVE (NEGATIVE); LEUKOCYTE ESTERASE, URINE LARGE (NEGATIVE); NITRITE,URINE NEGATIVE (NEGATIVE); OCCULT BLOOD,URINE MODERATE (NEGATIVE); PH,URINE 8.5 PH (5.0-7.5); PROTEIN,URINE 100 mg/dL (NEGATIVE); UROBILINOGEN,URINE 0.2 (NORMAL) E.U./dL (NORMAL)
[2023-04-02 13:02] LABS: AMORPHOUS SEDIMENT,UR Few /LPF; BACTERIA,URINE Moderate /HPF (None Seen); CLARITY,URINE TURBID (CLEAR); RBC,URINE 0-5 /HPF (0-5); SQUAMOUS EPITHELIAL CELL,UR FEW Squamous (<= Few); WBC CLUMPS,URINE PRESENT; WBC,URINE >25 /HPF (0-5)
[2023-04-02 13:03] LABS: CRYSTALS,URINE 6-10 Triple Phos /LPF
== END 2023-04-02 12:34 | disposition home or self-care (01) ==
LOC: LAB.R 12:33
PROVIDERS: ATTEND Registered Nurse
DX: N39.0 Urinary tract infection, site not specified (principal)
CPT/HCPCS: 81001; 87077; 87086; 87181

== ENCOUNTER 2023-04-28 08:08 | Outpatient (CLI) | payer MEDICARE, OTHER | END 2023-04-28 23:59 | disposition critical access hospital (66) | LOC: EMS 08:08 | DX: R10.12 Left upper quadrant pain (principal); R14.0 Abdominal distension (gaseous); R11.10 Vomiting, unspecified | CPT/HCPCS: A0425; A0429 ==

== ENCOUNTER 2023-04-28 08:17 | Emergency (ER) | payer MEDICARE, OTHER ==
[2023-04-28] MEDS ORDERED: KETOROLAC 15 MG/ML VIAL IVP STA (08:27)
[2023-04-28] MEDS ORDERED: HYDROmorphone 0.5 MG/0.5 ML SYRINGE IVP STA (08:27)
[2023-04-28] MEDS ORDERED: SODIUM CHLORIDE 0.9% 1,000 ML IV STA (08:28)
[2023-04-28] MEDS ORDERED: DROPERIDOL 5 MG/2 ML VIAL IVP STA (08:29)
--- NOTE | 2023-04-28 08:30 | ED Physician Documentation ---
PD HPI ABD PAIN - Stated complaint Stated Complaint: N/V ABD PX - History obtained from History obtained from: Patient, EMS, Caregiver - History of Present Illness Timing - onset: Today, How many days ago (patient complaining of some abd pain per her son, for days to a week. having significant abd pain today. Dementia so hard to tell where she is localizing or describing the pain. Some lower abd fullness.) Timing - duration: Days Timing - details: Gradual onset, Still present (worse today), Waxing and waning Quality: Fullness/distended Location: All over / everywhere Associated symptoms: No: Fever, Vomiting Recently seen: Not recently seen Review of Systems Unable to obtain: Dementia Constitutional: denies: Fever GI: denies: Vomiting, Diarrhea PD PAST MEDICAL HISTORY - Past Medical History Cardiovascular: Hypertension Neuro: Dementia Endocrine/Autoimmune: Type 2 diabetes GI: GERD Psych: Anxiety Musculoskeletal: Osteoarthritis, Osteoporosis, Osteopenia, Fatigue, Scoliosis, Chronic back pain - Past Surgical History Past Surgical History: No - Present Medications Home Medications: Ambulatory Orders Medication Instructions Recorded Confirmed Aspirin [Adult Low Dose Aspirin EC] 81 mg PO DAILY 11/24/15 04/28/23 Losartan [Cozaar] 25 mg PO DAILY 11/24/15 04/28/23 Simvastatin 10 mg PO QPM 11/24/15 04/28/23 Acetaminophen [Tylenol] 1,000 mg PO QID PRN 04/28/23 04/28/23 Bisacodyl Supp [Dulcolax Supp] 10 mg [place] DAILY PRN 04/28/23 04/28/23 Calcium Carbonate [Tums (Calcium 500 mg PO Q4-6H 04/28/23 04/28/23 Carbonate 500mg)] Cetirizine [ZyrTEC] 10 mg PO DAILY 04/28/23 04/28/23 Gabapentin [Neurontin] 300 mg PO HS 04/28/23 04/28/23 Insulin Glargine [Lantus Solostar] 7 unit SUBQ HS 04/28/23 04/28/23 Insulin Lispro [Humalog] 4 unit SUBQ DAILY PM 04/28/23 04/28/23 Insulin Lispro [Humalog] 6 unit SUBQ BID 04/28/23 04/28/23 Levocetirizine Dihydrochloride 5 mg PO DAILY 04/28/23 04/28/23 Mineral Oil [Mineral Oil Enema] 1 ea RC DAILY PRN 04/28/23 04/28/23 Senna [Senokot] 17.2 mg PO DAILY PRN 04/28/23 04/28/23 Sennosides/Docusate Sodium 1 each PO DAILY 04/28/23 04/28/23 [Senna-Docusate Sodium Tablet] cephALEXin [Keflex] 500 mg PO TID #20 cap 04/28/23 polyethylene glycoL 3350 [Miralax] 17 gm PO DAILY PRN 04/28/23 04/28/23 - Allergies Allergies/Adverse Reactions: Allergies Allergy/AdvReac Type Severity Reaction Status Date / Time lisinopril Allergy Unknown Verified 04/28/23 08:26 Penicillins Allergy Unknown Verified 04/28/23 08:26 - Social History Does the pt smoke?: No Smoking Status: Never smoker Does the pt drink ETOH?: No Does the pt have substance abuse?: No - Immunizations Immunizations are current?: Yes - POLST Patient has POLST: Yes PD ED PE NORMAL - Vitals Vital signs reviewed: Yes - General General: Well developed/nourished, Other (seems very anxious and also seems in pain from abd. Abd tender with grimacing with palpating lower abd. ) - Cardiac Cardiac: RRR, No murmur - Respiratory Respiratory: Clear bilaterally - Abdomen Abdomen: Normal bowel sounds, Soft, No organomegaly, Other (tender mid to lower abd and fullness in suprapubic area c/w full bladder. Posadas in place however, with minimal urine out in bag. Tubing appears sedimented. ) Results - Vitals Vitals: Vital Signs - 24 hr 04/28/23 04/28/23 04/28/23 08:26 10:19 12:11 Temperature 36.9 C Heart Rate 99 90 91 Respiratory 24 18 18 Rate Blood Pressure 149/86 H 139/58 H 150/90 H O2 Saturation 100 100 100 04/28/23 04/28/23 04/28/23 13:55 15:09 16:43 Temperature Heart Rate 74 70 Respiratory 17 16 16 Rate Blood Pressure 138/76 H 147/61 H O2 Saturation 100 100 Oxygen O2 Source Room air - Labs Labs: Laboratory Tests 04/28/23 04/28/23 04/28/23 08:40 08:40 10:15 WBC 13.2 H RBC 3.97 L Hgb 8.2 L Hct 27.9 L MCV 70.3 L MCH 20.7 L MCHC 29.4 L RDW 16.7 H Plt Count 301 MPV 10.0 Neut # (Auto) 10.6 H Lymph # (Auto) 1.6 [place] # (Auto) 0.7 Eos # (Auto) 0.2 Baso # (Auto) 0.1 Absolute Nucleated RBC 0.00 Nucleated RBC % 0.0 Sodium 136 Potassium 4.4 Chloride 106 Carbon Dioxide 24 Anion Gap 6.0 BUN 35 H Creatinine 1.9 H Estimated GFR (MDRD) 25 L Glucose 332 H Calcium 8.9 Magnesium 1.8 Total Bilirubin 0.2 AST 10 ALT 7 L Alkaline Phosphatase 68 Total Protein 7.1 Albumin 3.3 Globulin 3.8 Albumin/Globulin Ratio 0.9 L Lipase 46 Urine Color YELLOW Urine Clarity CLOUDY Urine pH 8.5 H Ur Specific [place] 1.010 Urine Protein 100 H Urine Glucose (UA) 500 H Urine Ketones TRACE Urine Occult Blood MODERATE H Urine Nitrite POSITIVE H Urine Bilirubin NEGATIVE Urine Urobilinogen 0.2 (NORMAL) Ur Leukocyte Esterase MODERATE H Urine RBC 0-5 Urine WBC >25 H Urine WBC Clumps PRESENT Ur Squamous Epith Cells RARE Squamous Urine Crystals 0-2 Triple Phosphate Amorphous Sediment Few Urine Bacteria Many H Ur Microscopic Review INDICATED Urine Culture Comments INDICATED - Rads (name of study) abd/pelvic CT Relevant Findings:: Prelim report reviewed, EMP independent interpretation of test (bladder with posadas balloon in place. Bladder is exceedingly full considering posadas in place. ) PD Medical Decision Making - ED course Complexity details: re-evaluated patient (There was sediment in posadas and it appears older. Posadas changed to new one with some urine out, about 80-100 ml, but nowhere near the apmount see on CT. Posadas swapped and some urine out, but not much. Irrigated and fluid in and out okay. ), considered differential (Mid to lower abd pain without vomiting nor dfiarrhea. Has posadas in place that seems to not be draining in lieu of the degree of bladder fullness. ), d/w patient, d/w informatics consultant (Reid, Urology, who saw pt and it seemed with bedside US that the urine has evacuated. Bladder does continue to feel full but pt is now very comfortable. ) Reviewed Lab Results: after new posadas, there was some urine out but only about 80-100 ml, while it appears to be considerably more full on CT. Irrigation without more out (same amount in and then out). Bedside US showing minimal fluid in bladder. Unclear why it looked to enlarged on CT. I talked with Urology about it, and he will come to ED to see the pt. See if in wrong place, etc. Departure - Departure Disposition: 01 Home, Self Care Clinical Impression: Abdominal pain, UTI (urinary tract infection), Posadas catheter problem Condition: Stable Record reviewed to determine appropriate education?: Yes Prescriptions: cephALEXin [Keflex] 500 mg PO TID #20 cap Comments: Your Posadas catheter appeared to not be draining appropriately and your bladder was quite full on CT scan. Is still feels somewhat distended but it appears to be draining more properly now after changing the catheter. You do seem to be more comfortable as well. There is evidence for infection in the urine. Will start with a cephalexin 3 times a day for a week for that. The urine culture should result in a couple of days and see if we need to modify the antibiotic based on that. I chose cephalexin as this would be an appropriate antibiotic based on the germs that you grew in the last couple of infections so hopefully it is similar. Tylenol every 4-6 hours if needed for pains. Return if needed. Forms: PCP List Discharge Date/Time: 04/28/23 16:45
[2023-04-28 08:46] LABS: BASOPHILS # (AUTO) 0.1 10^3/uL (0.0-0.1); BASOPHILS % (AUTO) 0.5 %; EOSINOPHILS # (AUTO) 0.2 10^3/uL (0.0-0.7); EOSINOPHILS % (AUTO) 1.5 %; HCT - HEMATOCRIT 27.9 % (37.0-47.0); HGB - HEMOGLOBIN 8.2 g/dL (12.0-16.0); LYMPHOCYTES # (AUTO) 1.6 10^3/uL (1.5-3.5); LYMPHOCYTES % (AUTO) 12.2 %; MEAN CORPUSCULAR HEMOGLOBIN 20.7 pg (27.0-31.0); MEAN CORPUSCULAR HGB CONC 29.4 g/dL (32.0-36.0); MEAN CORPUSCULAR VOLUME 70.3 fL (81.0-99.0); MONOCYTES # (AUTO) 0.7 10^3/uL (0.0-1.0); MONOCYTES % (AUTO) 5.6 %; NEUTROPHILS # (AUTO) 10.6 10^3/uL (1.5-6.6); NEUTROPHILS % (AUTO) 79.7 %; PLT - PLATELET COUNT 301 10^3/uL (130-450); RED BLOOD COUNT 3.97 10^6/uL (4.20-5.40); RED CELL DISTRIBUTION WIDTH 16.7 % (12.0-15.0); WHITE BLOOD COUNT 13.2 x10^3/uL (4.8-10.8)
[2023-04-28 08:59] LABS: ALBUMIN 3.3 g/dL (3.2-5.5); ALBUMIN/GLOBULIN RATIO 0.9 (1.0-2.2); BILIRUBIN,TOTAL 0.2 mg/dL (0.2-1.0); CALCIUM 8.9 mg/dL (8.5-10.3); CREATININE 1.9 mg/dL (0.6-1.3); MAGNESIUM 1.8 mg/dL (1.7-2.3); POTASSIUM 4.4 mmol/L (3.5-4.5); TOTAL PROTEIN 7.1 g/dL (6.4-8.9)
[2023-04-28 10:21] LABS: BILIRUBIN,URINE NEGATIVE (NEGATIVE); GLUCOSE, URINE (UA) 500 mg/dL (NEGATIVE); KETONES,URINE (UA) TRACE mg/dL (NEGATIVE); LEUKOCYTE ESTERASE, URINE MODERATE (NEGATIVE); NITRITE,URINE POSITIVE (NEGATIVE); OCCULT BLOOD,URINE MODERATE (NEGATIVE); PH,URINE 8.5 PH (5.0-7.5); PROTEIN,URINE 100 mg/dL (NEGATIVE); UROBILINOGEN,URINE 0.2 (NORMAL) E.U./dL (NORMAL)
[2023-04-28 10:22] LABS: CLARITY,URINE CLOUDY (CLEAR)
--- NOTE | 2023-04-28 10:25 | CT Report ---
PROCEDURE: ABDOMEN/PELVIS WO INDICATIONS: Abdominal pain, acute, nonlocalized TECHNIQUE: A CT scan of the abdomen and pelvis was performed without the use of intravenous contrast. Images we re recorded and evaluated at appropriate window settings. Reformats: coronal and sagittal. For radiat ion dose reduction, the following was used: automated exposure control, adjustment of mA and/or kV ac cording to patient size. COMPARISON: CT of the abdomen and pelvis dated 03/07/2009 FINDINGS: Image quality: Excellent. Lung bases and heart: Unremarkable. Liver: No solid mass. Gallbladder and biliary tree: The gallbladder is grossly unremarkable. Subcentimeter stones may be pr esent near the cystic duct. Spleen: No splenomegaly. Pancreas: The pancreas has a lobulated appearance which is new when compared with the CT dated 2008. Is unclear whether this may represent multiple small pancreatic cystic lesions or a dilated lockhart creatic duct. Adrenals: No adrenal nodule. Kidneys and ureters: There is a 2 mm calculus in the upper pole of the right kidney. No hydronephrosi s. No renal cystic lesion which requires follow up. No solid mass. Bowel and peritoneum: No bowel distension. No pathologic free fluid. The appendix is thin-walled. Lymph nodes: No central or retroperitoneal adenopathy. Vessels: No infrarenal aortic aneurysm. Dense atheromatous calcifications are present throughout the abdominal aorta. PELVIS Reproductive organs: Unremarkable. Bladder: Despite the presence of a Hernandez catheter, the bladder is markedly distended with urine. Trac e gas is present, likely secondary to catheterization. The bladder appears thin-walled on this noncon trast study. Pelvic lymph nodes: No pelvic adenopathy by size criteria. Bones: No aggressive osseous abnormality. Other: No significant ventral or inguinal hernia. IMPRESSION: 1. Nonobstructing right nephrolithiasis. No hydronephrosis, hydroureter, or ureterolithiasis. 2. Despite catheterization, the bladder is markedly distended with urine. Patient's abdominal pain ma y be secondary to over filled bladder. 3. Questionable pancreatic cystic lesions versus dilated pancreatic duct. Findings are difficult to c haracterize on noncontrast study. If further characterization is warranted, pancreatic mass protocol CT could be used. Reviewed by: Sabina Abdullahi MD on 04/28/2023 10:23 AM PST Approved by: Sabina Abdullahi MD on 04/28/2023 10:[address] [facility] Station ID: [id number]
[2023-04-28 10:29] LABS: RBC,URINE 0-5 /HPF (0-5); WBC CLUMPS,URINE PRESENT; WBC,URINE >25 /HPF (0-5)
[2023-04-28 10:30] LABS: AMORPHOUS SEDIMENT,UR Few /LPF; BACTERIA,URINE Many /HPF (None Seen); CRYSTALS,URINE 0-2 Triple Phosphate /LPF; SQUAMOUS EPITHELIAL CELL,UR RARE Squamous (<= Few)
[2023-04-28] MEDS ORDERED: levoFLOXacin 500 MG/100 ML 500 MG/100 ML BAG IV STA (10:41)
[2023-04-28] MEDS ORDERED: cefTRIAXone 1 GM VIAL IVP STA (10:42)
[2023-04-28 15:57] VITALS: O2SAT 100
--- NOTE | 2023-04-28 16:09 | CONSULTATION NOTE ---
Referring Provider Name of Referring Provider:: Dr Gould Consult Date: 04/28/23 Chief Complaint - Chief Complaint Chief Complaint: abdominal pain History of Present Illness - Admitted From Admitted From:: Currently in ER - History Obtained From Records Reviewed: hospital History obtained from: Son Exam Limitations: Patient only answers basic questions - History of Present Illness HPI Comment/Other: 87yo F with no known urological history, except for fairly recent need for occasional catheter use in setting of UTIs at her [facility]. She had a catheter placed at an unknown time recently at her facility. Per report had been complaining about abdominal pains, and was sent to ER. In the ER she was noted to have an abdominal mass in lower midline, and her catheter had a lot of sediment in it. She had a CT scan which clearly showed the catheter in position, but the bladder was distended. The catheter was switched out but not a lot of urine exited, and her abdominal exam was concerning. Urology was notified at this time. At some time soon afterwards, a bedside US was performed, this showed the catheter in place but no fluid in the bladder. At time of urology exam, patient states she has no current abdominal pains, but she also doesn't remember having pain before so unclear how reliable a historian she is. History - Past Medical History Cardiovascular: reports: Hypertension Endocrine/Autoimmune: reports: Type 2 diabetes GI: reports: GERD Psych: reports: Anxiety Musculoskeletal: reports: Osteoarthritis, Osteoporosis, Osteopenia, Fatigue, Scoliosis, Chronic back pain MRSA Hx?: No - POLST Patient has POLST: Yes Meds/Allgy - Home Medications Home Medications: Ambulatory Orders Medication Instructions Recorded Confirmed Aspirin [Adult Low Dose Aspirin EC] 81 mg PO DAILY 11/24/15 04/28/23 Losartan [Cozaar] 25 mg PO DAILY 11/24/15 04/28/23 Simvastatin 10 mg PO QPM 11/24/15 04/28/23 Acetaminophen [Tylenol] 1,000 mg PO QID PRN 04/28/23 04/28/23 Bisacodyl Supp [Dulcolax Supp] 10 mg [place] DAILY PRN 04/28/23 04/28/23 Calcium Carbonate [Tums (Calcium 500 mg PO Q4-6H 04/28/23 04/28/23 Carbonate 500mg)] Cetirizine [ZyrTEC] 10 mg PO DAILY 04/28/23 04/28/23 Gabapentin [Neurontin] 300 mg PO HS 04/28/23 04/28/23 Insulin Glargine [Lantus Solostar] 7 unit SUBQ HS 04/28/23 04/28/23 Insulin Lispro [Humalog] 4 unit SUBQ DAILY PM 04/28/23 04/28/23 Insulin Lispro [Humalog] 6 unit SUBQ BID 04/28/23 04/28/23 Levocetirizine Dihydrochloride 5 mg PO DAILY 04/28/23 04/28/23 Mineral Oil [Mineral Oil Enema] 1 ea RC DAILY PRN 04/28/23 04/28/23 Senna [Senokot] 17.2 mg PO DAILY PRN 04/28/23 04/28/23 Sennosides/Docusate Sodium 1 each PO DAILY 04/28/23 04/28/23 [Senna-Docusate Sodium Tablet] cephALEXin [Keflex] 500 mg PO TID #20 cap 04/28/23 polyethylene glycoL 3350 [Miralax] 17 gm PO DAILY PRN 04/28/23 04/28/23 - Allergies Allergies/Adverse Reactions: Allergies Allergy/AdvReac Type Severity Reaction Status Date / Time lisinopril Allergy Unknown Verified 04/28/23 08:26 Penicillins Allergy Unknown Verified 04/28/23 08:26 Exam - Vital Signs Vital Signs: Vital Signs x48h Temp Pulse Resp BP Pulse Ox 04/28/23 15:09 16 04/28/23 13:55 74 17 138/76 H 100 04/28/23 12:11 91 18 150/90 H 100 04/28/23 10:19 90 18 139/58 H 100 04/28/23 08:26 36.9 C 99 24 149/86 H 100 - Physical Exam General Appearance: positive: No acute distress Abdomen: positive: Non-tender, No organomegaly, No distention (softly distended abdomen, no palpable mass or concern for bladder distention on my exam), Other (posadas with CYU) Conclusion and Plan - Lab Results Laboratory Results 04/28/23 10:15: Urine Color YELLOW, Urine Clarity CLOUDY, Urine pH 8.5 H, Ur Specific [place] 1.010, Urine Protein 100 H, Urine Glucose (UA) 500 H, Urine Ketones TRACE, Urine Occult Blood MODERATE H, Urine Nitrite POSITIVE H, Urine Bilirubin NEGATIVE, Urine Urobilinogen 0.2 (NORMAL), Ur Leukocyte Esterase MODERATE H, Urine RBC 0-5, Urine WBC >25 H, Urine WBC Clumps PRESENT, Ur Squamous Epith Cells RARE Squamous, Urine Crystals 0-2 Triple Phosphate, Amorphous Sediment Few, Urine Bacteria Many H, Ur Microscopic Review INDICATED, Urine Culture Comments INDICATED 04/28/23 08:40: Sodium 136, Potassium 4.4, Chloride 106, Carbon Dioxide 24, Anion Gap 6.0, BUN 35 H, Creatinine 1.9 H, Estimated GFR (MDRD) 25 L, Glucose 332 H, Calcium 8.9, Magnesium 1.8, Total Bilirubin 0.2, AST 10, ALT 7 L, Alkaline Phosphatase 68, Total Protein 7.1, Albumin 3.3, Globulin 3.8, Albumin/Globulin Ratio 0.9 L, Lipase 46 04/28/23 08:40: WBC 13.2 H, RBC 3.97 L, Hgb 8.2 L, Hct 27.9 L, MCV 70.3 L, MCH 20.7 L, MCHC 29.4 L, RDW 16.7 H, Plt Count 301, MPV 10.0, Neut # (Auto) 10.6 H, Lymph # (Auto) 1.6, [place] # (Auto) 0.7, Eos # (Auto) 0.2, Baso # (Auto) 0.1, Absolute Nucleated RBC 0.00, Nucleated RBC % 0.0 - Diagnostic Imaging Results Diagnostic Imaging Results: positive: Other (bedside US performed showed catheter and balloon in collapsed bladder, no fluid collection, no free fluid obviously seen) - Diagnosis Diagnosis: Catheter malfunction - Consultation Note Consultation Note: 87yo F with recent catheterization for presumably urinary retention in setting of UTI, now with poor drainage of catheter and likely improved with replacement of catheter - Plan Plan: She has had many previous proteus UTIs, these can cause sediment and poor drainage of catheter. I recommend a 10-14 day course of treatment. Once patient back to her baseline, remove catheter and she can have bladder scans at facility. Only replace catheter if cannot void, PVR >400, or patient uncomfortable. She can followup with me in my office if she would like. I discussed with her son.
[2023-04-28 16:51] VITALS: BP 147/61
== END 2023-04-28 16:45 | disposition home or self-care (01) ==
LOC: EDUNIT# → ED 08:17
DX: T83.9XXA Unspecified complication of genitourinary prosthetic device, implant and graft, initial encounter (principal); N39.0 Urinary tract infection, site not specified; R10.84 Generalized abdominal pain; F03.90 Unspecified dementia, unspecified severity, without behavioral disturbance, psychotic disturbance, mood disturbance, and anxiety; I10 Essential (primary) hypertension; E11.9 Type 2 diabetes mellitus without complications; Z79.4 Long term (current) use of insulin
CPT/HCPCS: 36415; 51700; 51798; 74176; 80053; 81001; 83690; 83735; 85025; 87077; 87086; 87181; 96374; 96375; 99284; J1170; 81003

== ENCOUNTER 2023-04-28 16:42 | Outpatient (CLI) | payer MEDICARE, OTHER | END 2023-04-28 16:43 | disposition home or self-care (01) | LOC: EMS 16:42 | PROVIDERS: ATTEND Emergency Medicine | DX: F03.90 Unspecified dementia, unspecified severity, without behavioral disturbance, psychotic disturbance, mood disturbance, and anxiety (principal); R41.0 Disorientation, unspecified; Z74.01 Bed confinement status | CPT/HCPCS: A0425; A0428 ==

== ENCOUNTER 2023-05-22 15:09 | Outpatient (CLI) | payer MEDICARE, OTHER ==
[2023-05-22 16:07] LABS: BILIRUBIN,URINE NEGATIVE (NEGATIVE); GLUCOSE, URINE (UA) NEGATIVE (NEGATIVE); KETONES,URINE (UA) NEGATIVE (NEGATIVE); LEUKOCYTE ESTERASE, URINE LARGE (NEGATIVE); NITRITE,URINE NEGATIVE (NEGATIVE); OCCULT BLOOD,URINE MODERATE (NEGATIVE); PROTEIN,URINE 100 mg/dL (NEGATIVE); UROBILINOGEN,URINE 0.2 (NORMAL) E.U./dL (NORMAL)
[2023-05-22 16:26] LABS: CLARITY,URINE CLOUDY (CLEAR)
[2023-05-22 16:41] LABS: BACTERIA,URINE Few /HPF (None Seen); SQUAMOUS EPITHELIAL CELL,UR FEW Squamous (<= Few); WBC,URINE >25 /HPF (0-5); YEAST,URINE PRESENT
== END 2023-05-22 15:10 | disposition home or self-care (01) ==
LOC: LAB.R 15:09
PROVIDERS: ATTEND Registered Nurse
DX: R33.9 Retention of urine, unspecified (principal)
CPT/HCPCS: 81001; 87086

== ENCOUNTER 2023-05-29 08:00 | Outpatient (CLI) | payer MEDICARE, OTHER ==
[2023-05-29 12:47] LABS: ESTIMATED AVERAGE GLUCOSE 163 mg/dL (70-100); HEMOGLOBIN A1c% 7.3 % (4.27-6.07)
== END 2023-05-29 23:59 | disposition home or self-care (01) ==
LOC: LAB.R 08:00
PROVIDERS: ATTEND Registered Nurse
DX: I10 Essential (primary) hypertension (principal); E11.42 Type 2 diabetes mellitus with diabetic polyneuropathy; E63.9 Nutritional deficiency, unspecified; I43 Cardiomyopathy in diseases classified elsewhere; D50.9 Iron deficiency anemia, unspecified; E78.00 Pure hypercholesterolemia, unspecified
CPT/HCPCS: 80053; 80061; 82306; 83036; 83721; 84436; 84443

== ENCOUNTER 2023-06-01 22:02 | Outpatient (CLI) | payer MEDICARE, OTHER | END 2023-06-01 23:59 | disposition EMS.NT | LOC: EMS 22:02 | DX: R63.39 Other feeding difficulties (principal) ==

== ENCOUNTER 2023-06-17 14:46 | Outpatient (CLI) | payer MEDICARE, OTHER | END 2023-06-17 23:59 | disposition critical access hospital (66) | LOC: EMS 14:46 | DX: R41.82 Altered mental status, unspecified (principal); R63.8 Other symptoms and signs concerning food and fluid intake; F03.911 Unspecified dementia, unspecified severity, with agitation; S31.809A Unspecified open wound of unspecified buttock, initial encounter | CPT/HCPCS: A0425; A0429 ==